=== PATIENT | female | born 1965 | race Caucasian/White ===

== ENCOUNTER 2018-04-25 10:19 | Day surgery (SDC) | payer MEDICAID ==
[2018-03-08 12:51] VITALS: BMI 30.9
[2018-04-25 11:24] LABS: BASO # 0.01 K/mm3 (0.0-2.0); BASO % 0.2 % (0.0-3.0); EOS # 0.1 (0.0-0.7); EOS % 2.7 % (1.5-5.0); GRAN # 2.01 (1.4-6.5); GRAN % 38.1 % (50.0-68.0); HEMOGLOBIN 13.9 g/dL (12.0-16.0); LYMPH # 2.9 (1.2-3.4); LYMPH % 55.2 % (22.0-35.0); MEAN CELL VOLUME 82.8 fl (80.0-105.0); MEAN CORPUSCULAR HEMOGLOBIN 26.9 pg (25.0-35.0); MEAN CORPUSCULAR HGB CONC 32.5 g/dl (31.0-37.0); MEAN PLATELET VOLUME 10.3 fl (7.0-11.0); MONO # 0.2 (0.1-0.6); MONO % 3.8 % (1.0-6.0); RBC 5.17 10^6/uL (3.5-6.1); WHITE BLOOD COUNT 5.3 10^3/uL (4.5-11.0)
[2018-04-25 11:33] LABS: INR 1.07; PARTIAL THROMBOPLASTIN TIME 29.8 Seconds (25.1-36.5); PROTHROMBIN TIME 12.3 SECONDS (9.4-12.5)
[2018-04-25 11:37] LABS: BLOOD UREA NITROGEN 12 mg/dL (7-21); CALCIUM 9.8 mg/dL (8.4-10.5); GFR NON-AFRICAN AMERICAN > 60
[2018-04-25] MEDS ORDERED: Midazolam 2 MG/2 ML VIAL ONE (13:17)
[2018-04-25] MEDS ORDERED: Lidocaine 1% Inj (20ml) ONE (13:18)
[2018-04-25] MEDS ORDERED: Midazolam 2 MG/2 ML VIAL IVP ONE (13:45)
[2018-04-25] MEDS ORDERED: Sodium Chloride 0.45% 1,000 ML IV SCH (14:00)
[2018-04-25 14:39] VITALS: O2SAT 100
[2018-04-25 14:58] VITALS: PULSE 72; RESP 20; TEMP 97.4
[2018-04-25 15:32] VITALS: BP 133/82
--- NOTE | 2018-04-25 19:12 | US ---
PROCEDURE: Ultrasound-guided left isthmus thyroid fine needle aspiration biopsy. CLINICAL HISTORY: Goiter. Multiple large nodules. Dominant 2.4 cm left isthmus nodule. Evaluate for malignancy. PHYSICIAN(S): Mati Garcia M.D. TECHNIQUE: The relative risks and indications for the procedure were explained to the patient and consent obtained. The patient was placed supine on the stretcher with the neck extended and preliminary sonography of the thyroid performed. This reveal multiple bilateral nodules with a dominant 2.4 cm left isthmus nodule.. The neck was prepped and draped in the usual sterile fashion. Conscious sedation and monitoring were provided throughout the procedure by a nurse. 1% Xylocaine was used to anesthetize the skin and soft tissues at the access site. Three passes with a 22-gauge needle were performed under ultrasound guidance for fine needle aspiration of the 2.4 cm hypo nodule in the left thyroid isthmus. The slides were reviewed by pathology and deemed adequate. The patient tolerated the procedure well. IMPRESSION: 1. Ultrasound guided fine needle aspiration of a 2.4 cm dominant nodule in the left isthmus
== END 2018-04-25 16:00 | disposition home or self-care (01) ==
LOC: SDS 10:19
PROVIDERS: ATTEND Radiology Vascular & Interventional Radiology
DX: E04.2 Nontoxic multinodular goiter (principal); I10 Essential (primary) hypertension; J45.909 Unspecified asthma, uncomplicated; E11.9 Type 2 diabetes mellitus without complications
CPT/HCPCS: 10005; 36415; 80048; 84703; 85025; 85610; 85730; 88173; J2250; J2405; J3010; J7030